=== PATIENT | female | born 1980 ===

== ENCOUNTER → 2017-12-08 10:37 | Outpatient (CLI) | payer OTHER, SELFPAY | PROVIDERS: PCP Nurse Practitioner Family; Visit Provider Nurse Practitioner Family | DX: M25.531 Pain in right wrist (principal) | CPT/HCPCS: 95886; 95909 ==

== ENCOUNTER → 2018-02-13 18:02 | Outpatient (CLI) | payer OTHER, SELFPAY ==
--- NOTE | 2018-02-13 18:06 | DI.RAD.S_ITS ---
PROCEDURE: XR HIP W PEL IF DONE RT 2V INDICATIONS: right hip pain TECHNIQUE: AP pelvis with lateral view(s) of the right hip(s). COMPARISON: None. FINDINGS: Bones: No fractures or dislocations. No evidence of avascular necrosis. Pelvic ring appears intact. No suspicious bony lesions. Soft tissues: The visualized bowel gas pattern is normal. No suspicious soft tissue calcifications. IMPRESSION: Unremarkable radiographic examination of the pelvis and right hip. Dictated by: Liang Lu M.D. on 02/14/2018 at 9:50 Approved by: Liang Lu M.D. on 02/14/2018 at 9:50
--- NOTE | 2018-02-13 18:06 | DI.MRI.S_ITS ---
PROCEDURE: MR WRIST RT WO CON INDICATIONS: persistant right wrist pain TECHNIQUE: Noncontrast coronal proton density fast spin echo and T2 fast spin echo with fat saturation; coronal 3-D gradient echo, axial T1 spin echo and T2 fast spin echo with fat saturation, sagittal T1 spin echo through the wrist. COMPARISON: [facility], , WRIST MINIMUM 3 VIEWS RIGHT, 09/04/2015, 19:54. FINDINGS: Image quality: Excellent. Bones and cartilage: The carpal bones are normally aligned. No bone marrow contusions or fractures. No evidence for avascular necrosis. Overlying cartilage surfaces appear normal. Carpal ligaments: The scapholunate and lunotriquetral ligaments appear intact. In the absence of intra-articular contrast, the extrinsic carpal ligaments are not well identified. On sagittal images, the pisohamate ligament appears intact. Triangular fibrocartilage complex: The triangular fibrocartilage appears intact. The adjacent meniscal homolog appears normal in the absence of intra-articular contrast. The extensor carpi ulnaris tendon is normal in location and morphology. Tendons and soft tissues: The carpal tunnel structures appear normal, including the median nerve. The ulnar nerve appears normal within Guyon's canal. Minimal fluid along the course of the extensor carpi radialis brevis tendon. Tiny multiloculated 3 mm ganglion cyst along the dorsal cortex of the lunate/scaphoid articulation image 13 series 7. IMPRESSION: Minimal extensor carpi radialis brevis tenosynovitis. Tiny ganglion cyst along the dorsal aspect of the proximal carpal row as above Intact appearance of the TFCC. No definite ulnocarpal compartment chondral loss. Dictated by: Desmond Bourgeois M.D. on 02/14/2018 at 8:56 Approved by: Desmond Bourgeois M.D. on 02/14/2018 at 9:14
== END ==
PROVIDERS: PCP Physician Assistant; Visit Provider Physician Assistant
DX: M25.531 Pain in right wrist (principal); M25.551 Pain in right hip
CPT/HCPCS: 73221; 73502

== ENCOUNTER → 2019-05-05 11:45 | Outpatient (CLI) | payer OTHER, SELFPAY ==
[2019-05-05 12:25] LABS: Hematocrit 40.2 % (36-46); Hemoglobin 13.7 g/dL (12.0-16.0); Mean Corpuscular HGB Conc 34.1 % (30-36); Mean Corpuscular Hemoglobin 30.8 PG (26-34); Mean Corpuscular Volume 90.3 fL (80-100); Platelet Count 287 X10^3/uL (150-400); Red Blood Cell Count 4.45 X10^6/uL (4.0-5.2); Red Cell Distribution Width 14.2 % (11.6-14.8); White Blood Cell Count 7.3 X10^3/uL (4.5-11.0)
[2019-05-05 12:32] LABS: Alanine Aminotransferase 14 IU/L (<35); Albumin 4.6 g/dL (3.5-5.0); Albumin Globulin Ratio 1.5 (1.0-2.8); Alkaline Phosphatase 49 U/L (38-126); Aspartate Aminotransferase 20 IU/L (14-36); Bilirubin Total 0.7 mg/dL (0.2-1.3); Blood Urea Nitrogen 12 mg/dL (7-17); Calcium 9.8 mg/dL (8.4-10.2); Carbon Dioxide 23 mmol/L (22-32); Chloride 106 mmol/L (98-107); Cholesterol 184 mg/dL (140-199); Estimated Glomerular Filt Rate > 60.0 mL/min (>60); Glucose 85 mg/dL (70-100); HDL Cholesterol 51 mg/dL (40-60); HEMOLYSIS < 15 (0-50); LDL Cholesterol Calculated 122 mg/dL (<100); Potassium 4.3 mmol/L (3.4-5.1); Sodium 140 mmol/L (137-145); Total Protein 7.6 g/dL (6.3-8.2); Triglycerides 53 mg/dL (35-150)
[2019-05-05 13:01] LABS: TSH w/ Reflex to FT4 0.97 uIU/mL (0.47-4.68)
[2019-05-05 13:03] LABS: Testosterone 45.7 ng/dL (5.71-77.0)
== END ==
PROVIDERS: PCP Nurse Practitioner Family; Referring Provider Nurse Practitioner Family; Visit Provider Nurse Practitioner Family
DX: Z00.00 Encounter for general adult medical examination without abnormal findings (principal); L63.9 Alopecia areata, unspecified; Z13.6 Encounter for screening for cardiovascular disorders; L68.0 Hirsutism
CPT/HCPCS: 36415; 80053; 80061; 84403; 84443; 85027

== ENCOUNTER → 2019-07-04 10:51 | Outpatient (CLI) | payer OTHER, SELFPAY ==
[2019-07-04 12:28] LABS: Free T3, Triiodothyronine Free 2.97 pg/mL (2.77-5.27); T4 Total Thyroxine 5.32 ug/dL (5.5-11.0)
[2019-07-04 12:58] LABS: Vitamin B12 331 pg/mL (239-931)
[2019-07-05 19:10] LABS: ANA Screen, IFA Negative (.)
== END ==
PROVIDERS: PCP Nurse Practitioner Family; Referring Provider Physician Assistant; Visit Provider Physician Assistant
DX: L63.8 Other alopecia areata (principal)
CPT/HCPCS: 36415; 82607; 84436; 84481; 86038

== ENCOUNTER → 2019-07-06 15:35 | Outpatient (CLI) | payer OTHER, SELFPAY ==
[2019-07-06 17:20] LABS: Free T4, Direct Thyroxine 0.89 ng/dL (0.78-2.19)
[2019-07-06 17:34] LABS: Thyroid Stimulating Hormone 1.22 uIU/mL (0.47-4.68)
== END ==
PROVIDERS: PCP Nurse Practitioner Family; Referring Provider Nurse Practitioner Family; Visit Provider Nurse Practitioner Family
DX: L63.9 Alopecia areata, unspecified (principal); R79.89 Other specified abnormal findings of blood chemistry
CPT/HCPCS: 36415; 84439; 84443